=== PATIENT | male | born 1985 | race Caucasian/White ===

== ENCOUNTER 2020-08-10 06:47 | Outpatient (CLI) | payer OTHER, SELFPAY ==
--- NOTE | ~2020-08-10 | MR_ITS ---
EXAMINATION: MR knee LT wo con DATE: 08/10/2020 07:48 INDICATION: Left knee pain. TECHNIQUE: Magnetic resonance imaging (MRI) of the left knee was performed without intravenous contra st. Sequences included axial PD-weighted FS FSE, coronal PD-weighted FSE and PD-weighted FS FSE, sagi ttal PD-weighted FSE, and sagittal T2-weighted FS FSE. COMPARISON: Left knee radiographs 04/24/2019 FINDINGS: Medial compartment: There is an upper surface horizontal tear of body and posterior horn of medial meniscus. Medial jazmín rtment cartilage is normal. Lateral compartment: Lateral meniscus is normal. Lateral compartment cartilage is normal. Patellofemoral compartment: There is a small area of full-thickness cartilage loss of patellar lateral facet with mild subchondra l edema-like marrow signal intensity. There is cartilage surface irregularity of patella and trochlea . Ligaments and tendons: Anterior cruciate ligament is enlarged with increased signal, likely mucoid degeneration. Posterior c ruciate ligament demonstrates increased signal, likely mucoid degeneration. Medial collateral ligamen t and lateral collateral ligament complex are intact. There is mild patellar tendinopathy. Fluid: There is a small knee joint effusion. There is trace fluid in a Carr's cyst. There is mild prepatell ar bursitis. IMPRESSION: 1. Focal severe patellar chondrosis. 2. Tear of medial meniscus. 3. Small knee joint effusion. Reviewed, dictated and finalized at location A.
== END 2020-08-10 06:48 | disposition home or self-care (01) ==
LOC: CHSIMG 06:50
PROVIDERS: PCP Internal Medicine; Visit Provider Internal Medicine
DX: M25.562 Pain in left knee (principal)
CPT/HCPCS: 73721

== ENCOUNTER 2020-08-22 13:43 | Emergency (ER) | payer OTHER, SELFPAY ==
[2020-08-22 14:00] VITALS: BP 138/88; PULSE 91; RESP 16; TEMP 37.7; O2SAT 97
--- NOTE | 2020-08-22 14:12 | ED.GENADULT ---
HPI - General Adult General Chief complaint: Chest Pain Stated complaint: chest should back neck pain Source: patient History of Present Illness HPI narrative: this is a 35-year-old male presents with some musculoskeletal chest discomfort started yesterday after he had manipulation by his chiropractor the pain is the the right and left sternal area reproducible with palpation and pressure and with movement. No nausea vomiting no shortness of breath did see his chiropractor 1 or 2 days ago and had some manipulation and since then has been having some discomfort. Has good range of motion in his neck, there is no numbness and tingling radiating down into his shoulders are his arms. There is no nausea vomiting no abdominal pain. Onset (ago): day(s) Location: neck and chest ( reproducible musculoskeletal pain) Radiation: non-radiation Severity: moderate Severity scale (1-10): 8 Quality: aching Pain Consistency: intermittent Relieving factors: rest Exacerbating factors: immobilization Associated symptoms: denies other symptoms Related Data Allergies Allergy/AdvReac Type Severity Reaction Status Date / Time No Known Allergies Allergy Unverified 02/18/17 06:46 Review of Systems Review of Systems: All systems reviewed & are unremarkable except as noted in HPI and below PMFSH Past Medical History Medical History Patient denies medical problems Exam Const: General: no acute distress and alert Orientation/consciousness: patient oriented x3 HENMT: Head: normal to inspection Eyes: Conjunctivae: conjunctivae normal Pupils: Equal, round and reactive pupils present Neck: Neck: normal visual inspection, no lymphadenopathy and no meningeal signs Chest: Chest palpation & inspection: normal inspection of the chest Other: reproducible chest discomfort with palpation Resp: Effort & Inspection: normal respiratory effort Auscultation: clear to auscultation bilaterally Cardio: Rate: regular rate Rhythm: regular rhythm GI: GI Palp: Yes Soft to palpation Percussion: Yes normal to percussion : Testes: Testes normal Back/Spine/Pelvis: Back: no CVA tenderness Skin: General skin exam: normal color Rashes: no rashes Neuro: General: patient oriented x3, moves all extremities, no meningeal signs and no focal motor deficits Extrem: General: normal to inspection and no pedal edema Psych: Appearance: grossly normal Mental Status: mental status grossly normal Affect: normal affect Course Course Emergency Course: reassessment of patient mildly improved with IM medication of muscle relaxer/ pain medication with IM Toradol. Vital Signs Vital signs: Vital Signs Temperature 37.7 C H 08/22/20 14:00 Pulse Rate 91 08/22/20 14:00 Respiratory Rate 16 08/22/20 14:00 Blood Pressure 138/88 08/22/20 14:00 Pulse Oximetry 97 08/22/20 14:00 Temperature 37.7 C H 08/22/20 14:00 Pulse Rate 91 08/22/20 14:00 Respiratory Rate 16 08/22/20 14:00 Blood Pressure 138/88 08/22/20 14:00 Pulse Oximetry 97 08/22/20 14:00 Medical Decision Making Vital Signs Vital Signs: Vital Signs Temperature 37.7 C H 08/22/20 14:00 Pulse Rate 91 08/22/20 14:00 Respiratory Rate 16 08/22/20 14:00 Blood Pressure 138/88 08/22/20 14:00 Pulse Oximetry 97 08/22/20 14:00 Temperature 37.7 C H 08/22/20 14:00 Pulse Rate 91 08/22/20 14:00 Respiratory Rate 16 08/22/20 14:00 Blood Pressure 138/88 08/22/20 14:00 Pulse Oximetry 97 08/22/20 14:00 Critical Care Time Critical Care Time Critical Care Time: No Discharge Plan Discharge Clinical Impression: Costalchondritis Patient Disposition: Home, Self-Care Condition: Stable Instructions: Antibiotic Form, Costochondritis (ED), Chest Wall Pain (ED) Additional Instructions: Take medicine as prescribed, and follow-up with primary care physician within 1 week for further evaluatio
[2020-08-22] MEDS: ORPHENADRINE CITRATE 100 MG TABLET.ER PO (14:19)
[2020-08-22] MEDS: KETOROLAC (*BKC) 60 MG/2 ML VIAL IM (14:19)
== END 2020-08-22 14:46 | disposition home or self-care (01) ==
PROVIDERS: Emergency Provider Emergency Medicine; PCP Internal Medicine
DX: M94.0 Chondrocostal junction syndrome [Tietze] (principal)
CPT/HCPCS: 96372; 99283; A9270; J1885

== ENCOUNTER 2020-09-20 02:41 | Outpatient (CLI) | payer OTHER, SELFPAY ==
[2020-09-20 18:02] LABS: SARS-CoV-2 RNA PCR Negative
== END 2020-09-20 02:42 | disposition home or self-care (01) ==
LOC: ANHCOVIDDT 02:41
PROVIDERS: PCP Internal Medicine; Visit Provider Orthopaedic Surgery
DX: Z01.812 Encounter for preprocedural laboratory examination (principal); Z20.828 Contact with and (suspected) exposure to other viral communicable diseases
CPT/HCPCS: 87635; C9803; U0003

== ENCOUNTER 2020-09-23 01:59 | Day surgery (SDC) | payer OTHER, SELFPAY ==
[2020-09-10 11:11] VITALS: BMI 26.4
--- NOTE | 2020-09-20 15:24 | WPDANESEPPF ---
Anes - Initial Pre Proc Eval Procedure: Operation Date: 09/23/20 07:30 Proposed Procedures p Left Knee Arthroscopy, Meniscus Debridement, Synovectomy, Chondroplasty, Proceed As Indicated - Clyde Clarke MD Date/Time: 09/20/20 15:24 Surgeon: Clyde Clarke MD Pre Op Diagnosis: Lt Knee Pain/ Lt Medial Meniscus Tear/ Synovitis Patient Data Age: 35 Gender: M Height: 1.83 m Weight: 88.45 kg Allergies Allergy/AdvReac Type Severity Reaction Status Date / Time No Known Allergies Allergy Verified 09/23/20 06:14 Home Medications Medication Instructions Recorded Confirmed Type tramadol [Ultram] 50 mg PO Q6H PRN #20 tablet 08/22/20 09/23/20 Rx Juice Plus Supplement 6 ea PO DAILY 09/10/20 History Patient hx anesthesia problems: none Family hx anesthesia problems: none PMFSH Past Medical History Medical History (Updated 09/20/20 @ 15:25 by Mina Wiley MD) Acute medial meniscus tear of left knee Arthritis Chondromalacia of left patellofemoral joint OCTAVIO (obstructive sleep apnea) Patient denies medical problems Rheumatoid arthritis Surgical History Surgical History History of arthroscopic surgery of shoulder Family History Family History Other Arthritis Hypertension Social History Social History Smoking status: Never smoker Smoking end date: 11/22/13 Alcohol intake: current Drinks per week: 2 Substance use: unknown Gender identity (if verbalized by the patient): Male Spiritual care concerns: No Anes - Eval Final PreProcedure Day of Procedure 09/20/20 15:24 Patient weight: overweight Heart: regular rate and rhythm Lungs: clear to auscultation and normal air movement Airway: Mallampati scale class II Neurological: alert and oriented Last oral intake: >/= 8 hours ASA classification: II Emergent: no Anesthetic plan: proceed Anesthesia type and monitoring: general LMA Informed Consent: The patient's anesthetic plan and its attendant risks and benefits were discussed with the patient/family/POA. Questions were solicited and answers provided to the satisfaction of the patient/family/POA.
[2020-09-23] VITALS (8 sets, daily range): BP systolic 115–127; BP diastolic 69–86; PULSE 50–90; RESP 10–20; TEMP 36.3–36.8; O2SAT 99–100; BMI 27.9
[2020-09-23] MEDS: KETOROLAC 15 MG/ML VIAL (*BKC) IV PUSH (06:54)
[2020-09-23] MEDS: LACTATED RINGERS 1,000 ML 30 ML IV CONT ×2 (06:54→08:43)
[2020-09-23] MEDS: ACETAMINOPHEN 500 MG TABLET 1000 MG PO (06:54)
--- NOTE | 2020-09-23 07:05 | SUR.PREOP ---
0700; DR DE PAZ NOTIFIED OF PT WAKING UP TODAY WITH LT CHEST CRAMPING PAIN AND LT SHOULDER PAIN. 01/01.
--- NOTE | 2020-09-23 07:09 | SUR.PREOP ---
CRUTCH TRAINING DONE TODAY. PT DID WELL
--- NOTE | 2020-09-23 07:13 | WPDHPUPDATE1 ---
History and Physical Update Update Date/Time: 09/23/20 07:13 History and Physical has been reviewed, including an updated exam of the patient. There are NO changes in the patient's condition. Covid test negative. Risks, benefits, and alternatives have been discussed and questions answered. Patient agrees to proceed with procedure.
[2020-09-23] MEDS: ceFAZolin 2 GM/D5W 50 ML 2 GM/50 ML BAG IVPB (07:29)
[2020-09-23] MEDS: BUPIVACAINE/EPINEPHRINE 0.5% 10 ML VIAL INFILTRATE (07:54)
--- NOTE | 2020-09-23 08:41 | PM.PROC ---
Procedure Note - Detailed Date of procedure: 09/23/20 Pre-op diagnosis: Lt Knee Pain/ Lt Medial Meniscus Tear/ Synovitis Left knee pain, medial meniscus tear, patellofemoral chondromalacia, synovitis with medial plica Post-op diagnosis: same Procedure performed: left knee arthroscopy with partial medial meniscectomy, synovectomy and chondroplasty of the patellofemoral joint Description of procedure: indications: Patient is a 35-year-old gentleman with left knee pain. MRI demonstrates since widest, chondromalacia patellofemoral joint medial meniscus tear. He has failed conservative treatment physical therapy and multiple cortisone injections. He presents for operative treatment. Informed consent given by patient. Operative extremity marked in preoperative holding area. Patient received intravenous antibiotics. Patient brought to operating room and underwent general anesthetic by anesthesia team. Positioned supine on operating room table. Left leg placed into a posterior thigh leg ruiz. Foot of the table dropped to 90? and right leg padded out of the field. Time-out performed confirming patient, site of surgery and plan. Left knee prepped and draped in usual sterile surgical fashion using ChloraPrep skin solution. Standard arthroscopic portals made by using a 11 blade knife for the anterior lateral portal 1st. Capsule penetrated bluntly. Camera and inflow started. The below operative findings noted. Intra-articular visualization used to position the anterior medial portal using 22 gauge spinal needle. A 11 blade knife used for the skin and blunt penetration of the capsule. 4.7 millimeter arthroscopic shaver introduced and partial medial meniscectomy of the loose and torn portion performed. Edge of meniscus completed with arthroscopic Wand. Arthroscopic Wand used to perform chondroplasty of the patellofemoral articulation and the medial femoral condyle. Shaver reintroduced and a synovectomy performed of the anterior fat pad and extensive synovium as well as medial plica. Bleeding points coagulated with Wand. Knee inspected, no loose pieces noted. 1 liter of irrigant infused and suction out. Arthroscopic cannulas removed. Skin closed with 4 nylon interrupted suture. Local anesthetic with 0.25% Marcaine. Sterile dressing applied. Patient awoken from anesthesia, extubated and taken to recovery room in stable condition. All sponge needle and instrument counts correct at the end of the case. Anesthesia: GLMA Surgeon: Clyde Clarke MD Director Of Curriculum And Instruction: 1st administrative personal assistant Estimated blood loss (mL): 5 Drains: No Packing: No Pathology: none sent Complications: None Condition: stable Disposition: PACU Findings: Left knee arthroscopic findings include complex tear of the posterior horn and body medial meniscus involving approximately 50% of the posterior horn. Unrepairable type tear. Grade 3 chondromalacia distal and lateral patella. Grade 1 chondromalacia medial femoral condyle and trochlea. Extensive synovitis anteriorly with thickened fat pad and large medial plica with inflammation. Lateral compartment intact. ACL and PCL intact.
[2020-09-23] MEDS: fentaNYL CITRATE INJ (*CRX) 100 MCG/2 ML VIAL 25 MCG IV PUSH ×2 (08:59→09:02)
== END 2020-09-23 10:17 | disposition home or self-care (01) ==
PROVIDERS: PCP Internal Medicine; Visit Provider Orthopaedic Surgery
PROC: (CPT 29870; principal; 2020-09-23 07:30)
DX: M23.332 Other meniscus derangements, other medial meniscus, left knee (principal); M65.862 Other synovitis and tenosynovitis, left lower leg; M94.262 Chondromalacia, left knee; G47.33 Obstructive sleep apnea (adult) (pediatric); M06.9 Rheumatoid arthritis, unspecified
CPT/HCPCS: 29881; 29876; A9270; J0690; J1100; J1885; J2250; J2405; J2704; J3010; J7120

== ENCOUNTER 2020-09-30 08:16 | Outpatient (CLI) | payer OTHER, SELFPAY ==
--- NOTE | ~2020-09-30 | XR_ITS ---
EXAMINATION: XR knee LT 3V DATE: 09/30/2020 08:39 INDICATION: Left knee chondrosis. TECHNIQUE: 3 views of left knee were obtained. COMPARISON: Left knee radiographs 08/27/2020 FINDINGS: Bone alignment is normal. No fracture. There is mild osteoarthritis of lateral and patellof emoral compartments characterized by tiny marginal osteophytes. There is chondrocalcinosis of the men isci. There is a small knee joint effusion. IMPRESSION: 1. Mild left knee osteoarthritis. 2. Small left knee joint effusion. Reviewed, dictated and finalized at location B. [employer] OFFICER
== END 2020-09-30 08:17 | disposition home or self-care (01) ==
LOC: CHSIMG 08:18
PROVIDERS: PCP Internal Medicine; Visit Provider Orthopaedic Surgery
DX: Z47.89 Encounter for other orthopedic aftercare (principal)
CPT/HCPCS: 73562

== ENCOUNTER 2020-10-01 14:05 | Outpatient (RCR) | payer OTHER, SELFPAY ==
--- NOTE | 2020-10-01 15:03 | PTOPEVAL ---
Thank you for referring Beto Mg to [facility].? The patient is scheduled to be seen for therapy? ____x/week for ___ weeks. Please review, sign, date and return this plan of care NURIA. I agree with and certify that the following plan of care is medically necessary. Referring Physician Date Admitting Provider: Attending Provider: Clyde Clarke MD Referring Provider: *PT Outpatient Evaluation Start: 10/01/20 13:58 Freq: Status: Active Protocol: Document 10/01/20 14:00 Erika (Rec: 10/01/20 14:37 [facility] [id number]) Therapy Assessment Status Assessment Status Assessment Status Evaluation Outpatient Past Medical History Neurological History Hx Neurological Disorders No Significant History Cardiovascular History Hx Cardiac Disorders No Significant History Respiratory History Hx Sleep Apnea Yes Gastrointestinal History Hx Gastrointestinal Disorders No Significant History Genitourinary History Hx Genitourinary Disorders No Significant History Musculoskeletal History Hx Arthritis Yes Hx Orthopedic Surgery Yes: RT SHOULDER RTC REPAIR Hx Other Musculoskeletal Disorders Yes: LT KNEE PAIN Hematological History Hx Hematological Disorders No Significant History Endocrine History Hx Endocrine Disorders No Significant History HEENT History Hx HEENT Disorders No Significant History Integumentary History Hx Skin Disorders No Significant History Reproductive History Hx Reproductive Disorders No Significant History Psychosocial History Hx Psychiatric Disorders No Significant History Pain History History of Any Previous or Ongoing No Significant History Instance of Pain Anesthesia History Hx Anesthesia Reactions No Significant History Evaluation Information Problem Diagnosis s/p L knee arthroscopy, R knee PFC Onset 09/30/20 Subjective Information patient reports he underwent Query Text:As Reported By Patient/ surgery on 09/23/20 for a torn Family meniscus. he reports he also had some debridement of scar tissue and cartilage fraying. he reports he is off work currently. he reports he had surgery due to discomfort/pain in the L knee. he reports he is worried because he is still having the same popping in the knee that he reported prior to surgery. he reports he has increased pain with walking and stairs. he reports
--- NOTE | 2020-11-14 13:42 | PTOPEVAL ---
Thank you for referring Beto Mg to [facility].? The patient is scheduled to be seen for therapy? ____x/week for ___ weeks. Please review, sign, date and return this plan of care NURIA. I agree with and certify that the following plan of care is medically necessary. Referring Physician Date Admitting Provider: Attending Provider: Clyde Clarke MD Referring Provider: *PT Outpatient Evaluation Start: 10/01/20 13:58 Freq: Status: Active Protocol: Document 11/07/20 17:00 [facility] (Rec: 11/07/20 17:26 [facility] [id number]) Therapy Assessment Status Assessment Status Assessment Status Re-evaluation Outpatient Past Medical History Neurological History Hx Neurological Disorders No Significant History Cardiovascular History Hx Cardiac Disorders No Significant History Respiratory History Hx Sleep Apnea Yes Gastrointestinal History Hx Gastrointestinal Disorders No Significant History Genitourinary History Hx Genitourinary Disorders No Significant History Musculoskeletal History Hx Arthritis Yes Hx Orthopedic Surgery Yes: RT SHOULDER RTC REPAIR Hx Other Musculoskeletal Disorders Yes: LT KNEE PAIN Hematological History Hx Hematological Disorders No Significant History Endocrine History Hx Endocrine Disorders No Significant History HEENT History Hx HEENT Disorders No Significant History Integumentary History Hx Skin Disorders No Significant History Reproductive History Hx Reproductive Disorders No Significant History Psychosocial History Hx Psychiatric Disorders No Significant History Pain History History of Any Previous or Ongoing No Significant History Instance of Pain Anesthesia History Hx Anesthesia Reactions No Significant History Evaluation Information Problem Diagnosis s/p L knee arthroscopy, R knee PFC Subjective Information patient reports he feels sore Query Text:As Reported By Patient/ this date. he reports he has Family been back to work on light duty. he reports he is sore in the mm's of the L LE. he reports overall he still feels weak and not back to 100%. Pain Assessment Timing of Pain Assessment Timing of Pain Assessment Assessment Pain Scale Pain Scale Used Numeric (1 - 10) Self Report Pain Assessment Right Knee(s) Reported Pain Level 0 Lowest Pain Intensity 0 Greatest Pain Intensity 0 Left Knee(s) Reported Pain Level 3 Lowest Pain Intensity 3 Greatest Pain Intensity 5 Pain Score Pain Score 0,3: Self Report Additional Pain S
== END 2020-11-19 14:52 | disposition home or self-care (01) ==
LOC: CHSPT 14:05
PROVIDERS: PCP Internal Medicine; Visit Provider Orthopaedic Surgery
DX: Z47.89 Encounter for other orthopedic aftercare (principal)
CPT/HCPCS: 97016; 97110; 97161; 97530

== ENCOUNTER 2021-05-12 08:35 | Outpatient (CLI) | payer OTHER, SELFPAY ==
--- NOTE | ~2021-05-12 | XR_ITS ---
EXAMINATION: XR hand RT min 3V DATE: 05/12/2021 09:11 INDICATION: Rheumatoid arthritis. Right hand joint pain. TECHNIQUE: 3 views of right hand were obtained. COMPARISON: Right wrist radiographs 05/26/2017 FINDINGS: Bone alignment is normal. No fracture. There is mild osteoarthritis of first metacarpophala ngeal joint and third proximal interphalangeal joint characterized by tiny marginal osteophytes. Ther e is a type II lunate with subchondral cyst in proximal hamate. IMPRESSION: 1. Mild polyarticular osteoarthritis. No evidence of inflammatory arthropathy. Reviewed, dictated and finalized at location A.
--- NOTE | ~2021-05-12 | XR_ITS ---
EXAMINATION: XR hand LT min 3V DATE: 05/12/2021 09:11 INDICATION: Left hand joint pain. Rheumatoid arthritis. TECHNIQUE: 3 views of left hand were obtained. COMPARISON: None. FINDINGS: Bone alignment is normal. No fracture. There is a 5 mm nonaggressive lytic lesion in lunate at its radial aspect. Joint spaces are normal. IMPRESSION: 1. 5 mm nonaggressive lytic lesion in lunate, which may be an enchondroma or subchondral cyst. Reviewed, dictated and finalized at location A. IMPRESSION: 1. 5 mm nonaggressive lytic lesion in lunate, which may be an enchondroma or lewis bchondral cyst.
== END 2021-05-12 08:36 | disposition home or self-care (01) ==
LOC: CHSIMG 08:40
PROVIDERS: PCP Internal Medicine; Visit Provider Orthopaedic Surgery
DX: M79.641 Pain in right hand (principal); M79.642 Pain in left hand
CPT/HCPCS: 73130

== ENCOUNTER 2021-11-17 20:09 | Emergency (ER) | payer OTHER, SELFPAY ==
[2021-11-17 20:10] VITALS: BP 143/88; PULSE 89; RESP 20; TEMP 36.9; O2SAT 98
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
[2021-11-17] MEDS: KETOROLAC 30 MG/ML VIAL (*BKC) IM (20:35)
[2021-11-17] MEDS: BACITRACIN OINTMENT 15 GM TUBE 1 APPLIC TOPICAL (20:40)
[2021-11-17] MEDS: HYDROcodone/acetaminophen (*CRX) 5-325 MG TABLET 1 TAB PO (21:00)
[2021-11-17 21:10] VITALS: BP 138/79; PULSE 89; RESP 18; TEMP 36.7; O2SAT 100
== END 2021-11-17 21:12 | disposition home or self-care (01) ==
PROVIDERS: Emergency Provider Family Medicine; PCP Internal Medicine
DX: T23.261A Burn of second degree of back of right hand, initial encounter (principal); X08.8XXA Exposure to other specified smoke, fire and flames, initial encounter
CPT/HCPCS: 16020; 96372; 99283; A9270; J1885

== ENCOUNTER 2023-01-27 18:43 | Outpatient (CLI) | payer OTHER, SELFPAY ==
--- NOTE | ~2023-01-27 | XR_ITS ---
Lumbosacral Spine: AP and lateral views Clinical History: Pain Findings: The normal lordotic curve is maintained. Questionable minimal anterior wedging deformities of T12 and L1. The intervertebral disc spaces are preserved. The sacroiliac joints are normally outl ined. Impression: Possible minimal anterior wedging deformities of T12 and L1. Reviewed, dictated and finalized at [facility]. 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
[2023-01-27 18:58] LABS: Basophils Absolute Auto 0.07 K/mm3 (0.00-0.10); Basophils Percent Auto 0.9 % (0.0-1.0); Eosinophils Absolute Auto 0.22 K/mm3 (0.02-0.50); Eosinophils Percent Auto 2.8 % (1.0-6.0); Hematocrit 40.6 % (40.0-54.0); Hemoglobin 13.9 g/dL (14.0-18.0); Immature Granulocyte Absolute 0.02 K/mm3 (0.00-0.00); Immature Granulocyte Percent A 0.3 % (0.0-0.0); Lymphocytes Absolute Auto 2.62 K/mm3 (1.10-4.50); Mean Corpuscular HGB Conc 34.2 g/dL (32.0-36.0); Mean Corpuscular Hemoglobin 30.1 pg (27.0-31.0); Mean Corpuscular Volume 87.9 fL (78.0-102.0); Mean Platelet Volume 9.4 fl (8.7-11.0); Monocytes Absolute Auto 0.74 K/mm3 (0.10-0.90); Monocytes Percent Auto 9.3 % (2.0-11.0); Neutrophils Absolute Auto 4.3 K/mm3 (1.7-7.2); Neutrophils Percent Auto 53.7 % (50.0-70.0); Platelet Count Result 234 K/mm3 (150-420); Red Blood Count 4.62 M/mm3 (4.70-6.10); Red Cell Distribution Width 12.9 % (11.6-14.4); White Blood Count 7.9 K/mm3 (4.8-10.8)
[2023-01-27 20:14] LABS: Alanine Aminotransferase 21 U/L (16-63); Albumin Level 4.1 g/dL (3.4-5.0); Alkaline Phosphatase 76 U/L (46-116); Anion Gap 8 mmol/L (8-16); Aspartate Amino Transferase 30 U/L (15-37); Bilirubin,Total 0.4 mg/dL (0.00-1.00); Blood Urea Nitrogen 11 mg/dL (7-18); Calcium 8.6 mg/dL (8.5-10.1); Carbon Dioxide 29 mmol/L (21-32); Chloride 103 mmol/L (98-108); Estimated Glomerular Filt Rate > 60; Glucose 94 mg/dL (70-99); Osmolality Calculated 289 mOsm/kg (285-295); Potassium 3.9 mmol/L (3.5-5.1); Sodium 140 mmol/L (136-145); Total Protein 6.9 g/dL (6.4-8.2)
[2023-01-27 20:26] LABS: CRP < 0.5 mg/dL (0.0-0.9)
== END 2023-01-27 18:44 | disposition home or self-care (01) ==
PROVIDERS: PCP Internal Medicine; Visit Provider Internal Medicine
DX: M54.50 Low back pain, unspecified (principal)
CPT/HCPCS: 36415; 72100; 80053; 85025; 86140

== ENCOUNTER 2023-02-06 06:54 | Outpatient (CLI) | payer OTHER, SELFPAY | END 2023-02-06 06:55 | disposition home or self-care (01) | LOC: CHSIMG 06:56 | PROVIDERS: PCP Internal Medicine; Visit Provider Internal Medicine | DX: M54.50 Low back pain, unspecified (principal) | CPT/HCPCS: 99199 ==

== ENCOUNTER 2023-02-18 07:01 | Outpatient (CLI) | payer OTHER, SELFPAY ==
--- NOTE | ~2023-02-18 | MR_ITS ---
MRI of the lumbar spine Clinical History: Back pain Technique: Axial T2-weighted images, and sagittal T1-weighted, T2-weighted, and T2 fat-sat images wer e acquired. Findings: There is no acute fracture or subluxation of the lumbar spine. There is reactive marrow sig nal at the anterosuperior corner of the L2 vertebral body, probably due to underlying degenerative di sc disease. No other bone marrow signal abnormality seen. At L1-L2, there is minimal disc bulge. No spinal canal stenosis or neural foraminal narrowing. At L2-L3, L3-L4, and L4-L5, there is no disc bulge or herniation. No spinal canal stenosis or neural foraminal narrowing at these levels. At L5-S1, there is mild disc bulge with tiny annular fissure. No spinal canal stenosis or definite ne ural foraminal narrowing. Paravertebral soft tissues are unremarkable. Impression: Minimal degenerative spondylosis, as above. No acute compression fracture evident. Probable reactive marrow signal at the L2 vertebral body due t o underlying degenerative disc disease. Reviewed, dictated and finalized at location . Impression: Minimal degenerative spondylosis, as above. No acute compression fracture evident. Probable reactive marrow signal at the L 2 vertebral body due to underlying degenerative disc disease.
== END 2023-02-18 07:02 | disposition home or self-care (01) ==
LOC: CHSIMG 07:03
PROVIDERS: PCP Internal Medicine; Visit Provider Internal Medicine
DX: M54.50 Low back pain, unspecified (principal); M43.06 Spondylolysis, lumbar region
CPT/HCPCS: 72148

== ENCOUNTER 2023-03-01 15:43 | Outpatient (RCR) | payer OTHER, SELFPAY ==
--- NOTE | 2023-03-01 16:56 | PTOPEVAL1 ---
Assessment and note entered by Valentina Yeager DPT Evaluation Information Assessment Status Evaluation Diagnosis low back pain Onset 02/23/23 Subjective Information Patient reports that he has back pain that comes and goes for ~6 months. 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 MRI show disc bulging throughout lumbar spine He reports he has had back pain in the past that improved with PT. He reports difficulty with ambulating for prolonged periods, lifting heavy objects and performing heavy house hold duties. 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 He reports he has been told he has RA but does not have positive testing Reported Pain Level Pain Score 5: Self Report Assessment PT Clinical Summary Patient is a 37 year old male who presents to PT with low back pain. Osmin demosntrtes decreased core strength, decreased B LE strength and decreased B LE flexibility impairing his ability to perform hosue hold tasks, lifting and prolonged ambulation. He would benefit from skilled PT to address impairments and return to PLOF. Plan of Care Interventions Electrical Stimulation,Gait Training,Hot Pack/Cold Pack,Manual Therapy,Mechanical Traction,Neuro Re- education,Patient/Caregiver Educati,Therapeutic Activities,Therapeutic Exercise PT Services Indicated Yes Treatment Frequency and 2x weekly for 12 visits Duration These treatments will address the objective and functional deficits as defined above. The patient will be advanced safely and appropriately in order for the patient to progress towards his/her prior level of function. Additional exercises will be introduced and as well as a comprehensive home exercise program upon discharge, if needed, ?to ensure carryover of functional gains achieved in the clinic. This treatment plan has been reviewed and agreement upon by the patient.
--- NOTE | 2023-04-06 17:44 | PTOPPROGNS ---
Assessment and note entered by Vaelntina Yeager DPT Evaluation Information Assessment Status Progress Diagnosis low back pain Onset 02/23/23 Subjective Information Patient reports that since starting PT he has decreased pain. He also reports he feels like he is stronger since start of PT. He reports continued stabbing pain at the R lumbar spine but reports that is decreased with PT Assessment PT Clinical Summary Mr. Mg has been seen for 10 visits from 03/01/23 -04/06/23. He has made great improvements in LE strength, lumbar ROM and pain levels. He continues to have pain at L1 region and decrease B hip strength and would benefit from continuing with 2 remaining visits to address remaining impairments and return to PLOF. Plan of Care Interventions Electrical Stimulation,Gait Training,Hot Pack/Cold Pack,Manual Therapy,Mechanical Traction,Neuro Re- education,Patient/Caregiver Educati,Therapeutic Activities,Therapeutic Exercise PT Services Indicated Yes Treatment Frequency and continue with current POC Duration These treatments will address the objective and functional deficits as defined above. The patient will be advanced safely and appropriately in order for the patient to progress towards his/her prior level of function. Additional exercises will be introduced and as well as a comprehensive home exercise program upon discharge, if needed, ?to ensure carryover of functional gains achieved in the clinic. This treatment plan has been reviewed and agreement upon by the patient.
--- NOTE | 2023-04-15 17:45 | PTOPDC ---
Assessment and note entered by Valentina Yeager DPT Evaluation Information Assessment Status Re-evaluation Diagnosis low back pain Onset 02/23/23 Subjective Information Patient reports his back is feeling good. He reports he is back to doing all previous activities at [facility]. He is independent with HEP. Reported Pain Level Pain Score 1: Self Report Assessment PT Clinical Summary Patient was seen for 12 visits of skilled PT with good progress towards all goals. He demonstrates great improvement in LE strength and core strength as well as no pain with lumbar range. He is independent with HEP and is appropriate for DC at this time. Plan of Care PT Services Indicated No
== END 2023-04-15 13:50 | disposition home or self-care (01) ==
LOC: CHSPT 15:43
PROVIDERS: PCP Internal Medicine; Visit Provider Internal Medicine
DX: M54.9 Dorsalgia, unspecified (principal)
CPT/HCPCS: 97110; 97112; 97140; 97161

== ENCOUNTER 2024-05-02 11:52 | Outpatient (CLI) | payer OTHER, SELFPAY ==
[2024-05-02 12:04] LABS: Hemoglobin 13.5 g/dL (14.0-18.0); Mean Corpuscular HGB Conc 32.9 g/dL (32-36); Mean Corpuscular Volume 91.1 fL (78.0-102.0); Mean Platelet Volume 9.3 fl (8.7-11.0); Platelet Count Result 233 K/mm3 (150-420); Red Cell Distribution Width 12.8 % (11.6-14.4); White Blood Count 5.4 K/mm3 (4.8-10.8)
[2024-05-02 13:25] LABS: Alanine Aminotransferase 27 U/L (16-63); Albumin Level 4.1 g/dL (3.4-5.0); Alkaline Phosphatase 51 U/L (46-116); Anion Gap 8 mmol/L (4-12); Aspartate Amino Transferase 22 U/L (15-37); Bilirubin,Total 0.7 mg/dL (0.00-1.00); Blood Urea Nitrogen 11 mg/dL (7-18); Calcium 8.8 mg/dL (8.5-10.1); Carbon Dioxide 32 mmol/L (21-32); Chloride 100 mmol/L (98-108); Creatine Kinase 151 U/L (39-308); Estimated Glomerular Filt Rate > 60; Glucose 82 mg/dL (70-99); Osmolality Calculated 288 mOsm/kg (285-295); Potassium 4.3 mmol/L (3.5-5.1); Sodium 140 mmol/L (136-145); Total Protein 7.2 g/dL (6.4-8.2); Troponin I 4.3 ng/L (0.00-60.4)
[2024-05-02 13:29] LABS: CRP < 0.5 mg/dL (0.0-0.9)
[2024-05-04 14:13] LABS: Anti Cyclic Citrullinated Pept <16 UNITS
== END 2024-05-02 11:53 | disposition home or self-care (01) ==
LOC: CHSLAB 11:53
PROVIDERS: PCP Internal Medicine; Visit Provider Internal Medicine
DX: R07.9 Chest pain, unspecified (principal)
CPT/HCPCS: 36415; 80053; 82550; 82553; 84484; 85027; 86140; 86200